=== PATIENT | female | born 1995 | race African-American/Black ===

== ENCOUNTER 2018-07-07 20:40 | Emergency (ER) | payer OTHER ==
[~2018-07-07] VITALS: Ht 154.9 cm; Wt 73.8 kg
[~2018-07-07 20:40] MED LIST: KURVELO1 EACH PO; MOBIC7.5 MG PO
[2018-07-07 23:25] VITALS: BP 125/95
== END 2018-07-07 23:26 | disposition home or self-care (01) ==
LOC: EME 20:40
DX: Z04.1 Encounter for examination and observation following transport accident (principal); Z3A.22 22 weeks gestation of pregnancy
CPT/HCPCS: 76805; 99281; 99284

== ENCOUNTER 2018-07-10 16:33 | Outpatient (CLI) | payer OTHER ==
[~2018-07-10] VITALS: Ht 154.9 cm; Wt 73.0 kg
[2018-07-10 17:03] VITALS: BP 119/80
[2018-07-10 17:55] VITALS: BP 116/79
== END 2018-07-10 18:33 | disposition home or self-care (01) ==
LOC: LDRP-OP 16:33 → 2WEST 16:34
DX: O26.872 Cervical shortening, second trimester (principal); O26.892 Other specified pregnancy related conditions, second trimester; R10.9 Unspecified abdominal pain; M54.9 Dorsalgia, unspecified; Z3A.22 22 weeks gestation of pregnancy; V49.3XXA Car occupant (driver) (passenger) injured in unspecified nontraffic accident, initial encounter
CPT/HCPCS: 59025; G0378